=== PATIENT | male | born 1965 | race Caucasian/White ===

== ENCOUNTER 2016-10-31 13:48 | Emergency (ER) | payer OTHER ==
[~2016-10-31] VITALS: Ht 177.8 cm; Wt 61.4 kg
[2016-10-31 13:54] VITALS: BP 130/72; PULSE 108; RESP 16; O2SAT 98
--- NOTE | 2016-10-31 14:44 | ED.REPORT ---
HPI-Neck Pain Free Text HPI Notes Oct 31, 2016 ED Provider: Alondra Sandra History of Present Illness: can't swallow. had neck surgery Sunday, by Dr. Katelin bonilla. last urinate just [employer], no vomiting. hurts to swallow. feels his "servin apple" is being pushed over. Called the office this am, did not get a return phone call back and strongly encouraged him to come to the ER Nursing Notes Stated Complaint: CAN NOT SWALLOW Chief Complaint: General Complaint Nursing Notes Reviewed: Yes Allergies: Coded Allergies: clindamycin (Verified Allergy, Unknown, 10/31/16) POSSIBLE General Time Seen by Provider: 14:44 Chief Complaint Neck pain, Neck swelling Hx Obtained From: Patient Sudden in Onset?: Yes (woke this morning) Past Medical History Past Medical History hernia Past Surgical History hernia, neck surgery Smoking History Current Every Day Smoker (1 pack a day for 35 years) Social History Alcohol Use: Denies alcohol use Drug Use: Denies drug use Other Social History: Good social support, 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 Ambulatory Status Independent Review of Systems Basic Review of Systems : No dysuria Endocrine: No cold intolerance, No heat intolerance, No weight gain, No weight loss Psychiatric: Normal thought content Physical Exam Initial Vital Signs Vital Signs (First) Date Time Temp Pulse Resp B/P Pulse Ox O2 Delivery O2 Flow Rate FiO2 10/31/16 13:54 37.0 108 16 130/72 98 Room Air Initial VS: Reviewed, Vital signs normal Head / Eyes: Atraumatic, Normocephalic, PERRL ENT: Mucous membranes moist, Conjunctiva normal, No scleral icterus Respiratory: Breath sounds normal, Clear to auscultation, No respiratory distress Cardiovascular: Regular rate & rhythm, Heart sounds normal, Intact distal pulses Abdomen / GI: Soft, Non-tender, No guarding, No rebound, No distention Back: No CVA tenderness Lymphatic: No lymphadenopathy Extremities: Vascular intact, Neuro intact, No swelling, No tenderness Skin: Warm, Dry, No cyanosis Psychiatric: Mood/affect normal, Behavior normal, Normal thought content General/Constitutional: Awake, Alert, No acute distress, Well appearing, Well developed, Well hydrated, Well nourished, Cooperative, Not toxic appearing Neck: Atraumatic, Supple, No meningismus mild swelling noted, airway intact. Able to swallow salvia Neurologic: Oriented X3, Speech NL, No motor deficits, No sensory deficits, CN II - XII intact, Reflexes equal bilat, Cerebellar NL ENT: Atraumatic, Airway patent, Mucous membranes moist, Pharynx NL Respiratory / Chest: Atraumatic, Breath sounds NL, Breath sounds = bilat, No respiratory distress Cardiovascular: Heart rate NL, Regular rhythm, Heart sounds NL, No gallop Interpretation & Diagnostics Interpretation & Diagnostics: INDICATIONS: ? bleeding s/p surgery Sunday TECHNIQUE: After the administration of intravenous contrast, 3.0 mm axial sections acquired from the sella to the aortic arch. Additional oblique axial 3.0 mm sections acquired through the pharynx. 3 mm thick coronal reformats were generated. For radiation dose reduction, the following was used: automated exposure control. COMPARISON: None. FINDINGS: Image quality: Degraded by metallic artifact. Lymph nodes: No enlarged lymph nodes seen throughout the neck. Vessels: Visualized vasculature appears patent. Neck spaces: The oropharynx, nasopharynx, and pharynx demonstrate no mucosal lesions. The vocal cords, false vocal cords, pyriform sinuses, epiglottis, vallecula, and tongue base all appear normal. There is diffuse ill-defined low/fluid density within the prevertebral soft tissues at the level of the C2 vertebral body inferiorly through the T3 level, particularly within the left anterior paravertebral space at the T1 level, extending into the deep soft tissues of the left neck and at the anterior/medial aspect of the left common carotid artery. No peripherally enhancing fluid collections are present to indicate abscess. Subcutaneous gas within and surrounding the left sternocleidomastoid muscle is present. There is moderate thickening of the cervical esophagus Glands: The parotid and submandibular glands appear normal. Thyroid gland is within normal limits. Miscellaneous: Visualized brain and orbits appear normal. Lung apices appear clear. Superficial soft tissues appear normal. Bones: Status post fusion of C4-C7 with an anterior plate and screws No suspicious bony lesions. Visualized sinuses and mastoids appear unremarkable. IMPRESSION: 1. Status post C4-C7 fusion. 2. Prevertebral edema and fluid is described above, compatible with post surgical sequelae. No evidence of airway narrowing. 3. Thickening of the cervical esophagus, suggestive of esophagitis and/or esophageal injury. No peripherally enhancing fluid collections to indicate abscess. No evidence of acute hemorrhage. Dictated by: oJann Rome M.D. on 10/31/2016 at 17:01 Approved by: Joann Rome M.D. on 10/31/2016 at 17:13 Lab Results Interpretation Result Diagram: 10/31/16 1505 10/31/16 1505 Test 10/31/16 15:05 10/31/16 19:18 White Blood Count 11.8th/mm3 (3.8-10.1) Red Blood Count 6.29mil/mm3 (4.40-5.80) Hemoglobin 18.9g/dL (13.8-17.2) Hematocrit 51.3% (41.0-50.0) Mean Corpuscular Volume 81.6fL (81-100) Mean Corpuscular Hemoglobin 30.0pg (27.0-35.0) Mean Corpuscular Hemoglobin Concent 36.8% (32.0-37.0) Red Cell Distribution Width 14.3% (12.3-15.4) Platelet Count 250bil/L (150-400) Neutrophils (%) (Auto) 73.6% (40-74) Lymphocytes (%) (Auto) 14.8% (14-46) Monocytes (%) (Auto) 9.3% (4-12) Eosinophils (%) (Auto) 1.7% (0-5) Basophils (%) (Auto) 0.3% (0-3) Sodium Level 138mEq/L (134-144) Potassium Level 4.0mEq/L (3.5-5.2) Chloride Level 97mEq/L (97-108) Carbon Dioxide Level 24mmol/L (18-29) Blood Urea Nitrogen 15mg/dL (6-24) Creatinine 0.79mg/dL (0.76-1.27) Estimat Glomerular Filtration Rate 110mL/min (>59) Glucose Level 116mg/dL (60-99) Calcium Level 10.4mg/dL (8.5-10.1) Total Bilirubin 1.1mg/dL (0.0-1.2) Aspartate Amino Transf (AST/SGOT) 14U/L (0-50) Alanine Aminotransferase (ALT/SGPT) 18U/L (0-44) Alkaline Phosphatase 138U/L (25-150) Total Protein 8.3g/dL (6.4-8.4) Albumin 4.7g/dL (3.4-5.0) Hold Gan Top Tube Received (Received) Urine Color Yellow (YELLOW) Urine Appearance Clear (CLEAR,HAZY) Urine pH 6.0 (5.0-8.0) Urine Specific Sprague 1.015 (1.003-1.035) Urine Protein Negativemg/dL (NEG,TRACE) Urine Glucose (UA) Negativemg/dL (NEGATIVE) Urine Ketones 15mg/dL (NEGATIVE) Urine Occult Blood Negative (NEGATIVE) Urine Nitrite Negative (NEGATIVE) Urine Bilirubin Negative (NEGATIVE) Urine Urobilinogen Normalmg/dL (NORMAL) Urine Leukocyte Esterase Negative (NEGATIVE) Urine RBC 0-2/hpf (0-2) Urine WBC 0-5/hpf (0-5) Urine Epithelial Cells Few/hpf (NONE-MOD) Urine Crystals None seen (NONE SEEN) Urine Bacteria Few/hpf (NONE-FEW) Urine Hyaline Casts None/lpf (NONE) Urine Granular Casts None seen (NONE SEEN) Urine Waxy Casts None seen (NONE SEEN) Urine Red Blood Cell Casts None seen (NONE SEEN) Urine White Blood Cell Casts None seen (NONE SEEN) Urine Mucus None seen (None Seen) Urine Trichomonas None seen (NONE SEEN) Urine Yeast None (NONE SEEN) Urinalysis Comment None Urine Culture Reflexed Not indicated X-Ray Interpretation Xray Interpretation: ROCEDURE: X-RAY NECK SOFT TISSUE ([id number]) INDICATIONS: Difficulty swallowing after recent cervical fusion procedure dated 10/27/16. TECHNIQUE: 2 views of the neck were acquired. COMPARISON: NEIL Aiken, SPINE CERVICAL 2 OR 3VW, 08/16/2016, 15:03. FINDINGS: Airway: The airway appears patent. Soft tissues: Prominent pre-vertebral soft tissue swelling is identified extending from the C3 level to the C7-T1 level. No soft tissue air within this region is identified. The epiglottis and aryepiglottic folds appear normal. No soft tissue gas. Bones: No suspicious bony lesions. Visualized cervical spine is normally aligned. Interval postoperative changes are noted related to a C4-C7 anterior cervical discectomy and fusion. The hardware appears to be intact. Bony alignment is within normal limits. IMPRESSION: 1. Prominent prevertebral soft tissue swelling extending from C3-C7 probably is within normal limits, given the patient's recent cervical spine surgery. No soft tissue air is evident. The need for better evaluation utilizing contrast enhanced CT of the soft tissues of the neck may be determined clinically. 2. No unexpected radiopaque foreign bodies. 3. Patent airway. Dictated by: Rachid Hi M.D. on 10/31/2016 at 14:16 Approved by: Rachid Hi M.D. on 10/31/2016 at 14:20 Re-Eval/Medical Decision Med Decision/Clinical Course 51 year old male presents to the ER for sensation that his throat is closing. Started this moring. Yesterday was eating fine. Did call MD's office. No return call by noon and strongly encouraged him to come to the ER. CT shows normal expected result of surgery with esophagus thickening. Called Stella Mueller application design engineer, suggests decadron and viscous lidocaine. Patient does not tolerate viscous but has excellent response to the decadron. Feels swelling has reduced. Patient to follow up with Dr. Thomason tomorrow. Discharge & Departure Primary Impression: Thickening of esophagus Disposition: Home Additional Instructions: The esophagus thickening may be from surgery. If this does not resolve in 3 to 5 days, you will need to see ENT for them to take a look. Continue with your regular medications. Please be seen by Dr. Thomason tomorrow. Go and sit in his office until they give you a time or they close. Let them know you had 20 mg of decadron in the ER yesterday. They can access the CT results on line. REturn with any concerns. Referrals: Gayle Perdomo (PCP) Natasha Thomason MD EDSupervising Provider for APC: Alli Galicia MD Attending Statement I saw the patient with the [facility]. I agree with the plan and findings as documented above. In brief, 51-year-old male with recent cervical fusion now here with worsening neck pain. Initially unable to swallow, however handling secretions and improved on reassessment. Consultations as per above. Plan discharge home with careful return precautions and follow-up as noted. Patient agreeable to the plan as stated, no further questions. copies to: Gayle Perdomo; Natasha Thomason MD, Sue ARNP Oct 31, 2016 14:44 Alli Galicia MD Oct 31, 2016 16:05
[2016-10-31 15:15] LABS: BASOPHILS % (AUTO) 0.3 % (0-3); EOSINOPHILS % (AUTO) 1.7 % (0-5); MONOCYTES % (AUTO) 9.3 % (4-12); NEUTROPHILS % (AUTO) 73.6 % (40-74)
--- NOTE | 2016-10-31 15:22 | DRSVH ---
PROCEDURE: X-RAY NECK SOFT TISSUE ([id number]) INDICATIONS: Difficulty swallowing after recent cervical fusion procedure dated 10/27/16. TECHNIQUE: 2 views of the neck were acquired. COMPARISON: NEIL Aiken, SPINE CERVICAL 2 OR 3VW, 08/16/2016, 15:03. FINDINGS: Airway: The airway appears patent. Soft tissues: Prominent pre-vertebral soft tissue swelling is identified extending from the C3 level to the C7-T1 level. No soft tissue air within this region is identified. The epiglottis and aryepig lottic folds appear normal. No soft tissue gas. Bones: No suspicious bony lesions. Visualized cervical spine is normally aligned. Interval postope rative changes are noted related to a C4-C7 anterior cervical discectomy and fusion. The hardware ap pears to be intact. Bony alignment is within normal limits. IMPRESSION: 1. Prominent prevertebral soft tissue swelling extending from C3-C7 probably is within normal limits , given the patient's recent cervical spine surgery. No soft tissue air is evident. The need for be tter evaluation utilizing contrast enhanced CT of the soft tissues of the neck may be determined clin ically. 2. No unexpected radiopaque foreign bodies. 3. Patent airway. Dictated by: Rachid Hi M.D. on 10/31/2016 at 14:16 Approved by: Rachid Hi M.D. on 10/31/2016 at 14:20
[2016-10-31 15:37] LABS: Mean Corpuscular Volume 81.6 fL (81-100); Platelet Count 250 bil/L (150-400)
[2016-10-31] MEDS ORDERED: 0.9% Sodium Chloride 1,000 ML IV ONE (15:45)
--- NOTE | 2016-10-31 17:15 | DRSVH ---
PROCEDURE: CT NECK SOFT TISSUES WITH CONTRAST ([id number]) INDICATIONS: ? bleeding s/p surgery Sunday TECHNIQUE: After the administration of intravenous contrast, 3.0 mm axial sections acquired from the sella to th e aortic arch. Additional oblique axial 3.0 mm sections acquired through the pharynx. 3 mm thick co eliceo reformats were generated. For radiation dose reduction, the following was used: automated exp osure control. COMPARISON: None. FINDINGS: Image quality: Degraded by metallic artifact. Lymph nodes: No enlarged lymph nodes seen throughout the neck. Vessels: Visualized vasculature appears patent. Neck spaces: The oropharynx, nasopharynx, and pharynx demonstrate no mucosal lesions. The vocal cor ds, false vocal cords, pyriform sinuses, epiglottis, vallecula, and tongue base all appear normal. T here is diffuse ill-defined low/fluid density within the prevertebral soft tissues at the level of th e C2 vertebral body inferiorly through the T3 level, particularly within the left anterior paraverteb ral space at the T1 level, extending into the deep soft tissues of the left neck and at the anterior/ medial aspect of the left common carotid artery. No peripherally enhancing fluid collections are pres ent to indicate abscess. Subcutaneous gas within and surrounding the left sternocleidomastoid muscle is present. There is moderate thickening of the cervical esophagus Glands: The parotid and submandibular glands appear normal. Thyroid gland is within normal limits. Miscellaneous: Visualized brain and orbits appear normal. Lung apices appear clear. Superficial so ft tissues appear normal. Bones: Status post fusion of C4-C7 with an anterior plate and screws No suspicious bony lesions. Vis ualized sinuses and mastoids appear unremarkable. IMPRESSION: 1. Status post C4-C7 fusion. 2. Prevertebral edema and fluid is described above, compatible with post surgical sequelae. No eviden ce of airway narrowing. 3. Thickening of the cervical esophagus, suggestive of esophagitis and/or esophageal injury. No perip herally enhancing fluid collections to indicate abscess. No evidence of acute hemorrhage. Dictated by: Joann Rome M.D. on 10/31/2016 at 17:01 Approved by: Joann Rome M.D. on 10/31/2016 at 17:13
[2016-10-31] MEDS ORDERED: Dexamethasone Inj 20 MG in 0.9% Sodium Chloride-Pha MIX 50 ML IV ONE (17:40)
[2016-10-31] MEDS ORDERED: LidocaineVisc 2%:Antacid 1:1 10 mL Syringe PO ONE (17:40)
[2016-10-31 19:06] VITALS: BP 118/76; PULSE 99; RESP 18
[2016-10-31 19:29] LABS: APPEARANCE,URINE CLEAR (CLEAR,HAZY); COLOR,URINE YELLOW (YELLOW); OCCULT BLOOD,URINE NEGATIVE (NEGATIVE); UROBILINOGEN,URINE NORMAL (NORMAL)
[2016-10-31 19:48] VITALS: BP 120/74; PULSE 98; RESP 16; O2SAT 99
== END 2016-10-31 19:54 | disposition home or self-care (01) ==
LOC: SED 13:48
DX: R13.10 Dysphagia, unspecified (principal); K22.8 Other specified diseases of esophagus; F17.200 Nicotine dependence, unspecified, uncomplicated; Z88.1 Allergy status to other antibiotic agents
CPT/HCPCS: 36415; 70360; 70491; 80053; 81000; 85025; 96360; 99284; J1100; J7030; Q9967